=== PATIENT | male | born 1980 | race Caucasian/White ===

== ENCOUNTER → 2018-05-11 11:26 | Outpatient (CLI) | payer OTHER, SELFPAY ==
[2018-05-11 15:42] LABS: Absolute Lymphocyte Count 1.57 X10^3/ul (0.83-4.51); Absolute Neutrophil Count 3.4 X10^3/uL (2.0-7.7); Basophil# 0.02 X10^3/uL; Basophil% 0.4 % (0-1); Eosinophil# 0.04 X10^3/uL; Eosinophils% 0.7 % (0-5); Hematocrit 48.1 % (40-54); Hemoglobin 15.8 g/dl (13.0-16.5); Lymphocyte # 1.57 X10^3/ul (4.0); Lymphocyte % 28.9 % (19-41); Mean Corp Hgb Conc 32.8 g/gl (32-36); Mean Corpuscular Hgb 29.4 pg (27.0-32.0); Mean Corpuscular Volume 89.6 fL (80-94); Mean Platelet Vol. 10.3 fl (6.2-12.0); Monocyte# 0.39 X10^3/uL; Monocyte% 7.2 % (0-10); Neutrophil % 62.6 % (47-70); Platelet Count 221 K/mm3 (150-450); RBC Distribution Width CV 13.1 % (11.6-14.6); RBC Distribution Width SD 42.6 fl (35.1-43.9); Red Blood Count 5.37 M/mm3 (4.6-6.2); White Blood Count 5.4 K/mm3 (4.4-11.0)
[2018-05-11 15:45] LABS: POSITIVE COUNT NO; POSITIVE DIFFERENTIAL NO; POSITIVE MORPHOLOGY NO
[2018-05-11 18:54] LABS: ALB/GLOB Ratio 1.3 RATIO (0.9-2.4); AST(SGOT) 25 U/L (15-37); Alanine Aminotransfer ALT/SGPT 42 U/L (16-61); Albumin, Serum 4.3 g/dL (3.2-5.0); Alkaline Phosphatase 82 U/L (45-117); Anion Gap 9 (5-15); BUN 16 mg/dL (7-18); BUN/Creat Ratio 14.5 RATIO (10-20); Calcium,Total 9.4 mg/dL (8.5-10.1); Chloride 107 mmol/L (98-107); Cholesterol 204 mg/dL (200); EST Glomerular Filtration Rate 79 mL/min (>60); Est Glom Filt Rate - Afr Amer 96 mL/min (>60); Globulin 3.3 g/dL (2.2-4.2); Glucose 100 mg/dL (74-106); High Density Lipoprotein 65 mg/dL; Potassium 4.3 mmol/L (3.5-5.1); Protein, Total 7.6 g/dL (6.4-8.2); Sodium Level 143 mmol/L (136-145); Triglycerides 90 mg/dL; Very Low Density Lipoprotein 18 mg/dL (5-40)
== END ==
PROVIDERS: Family Provider Family Medicine; Visit Provider Family Medicine
DX: Z00.00 Encounter for general adult medical examination without abnormal findings (principal)
CPT/HCPCS: 36415; 80053; 80061; 85025

== ENCOUNTER 2022-05-20 22:27 | Emergency (ER) | payer OTHER, MEDICAID, SELFPAY ==
--- NOTE | 2022-05-20 22:30 | RAD_ITS ---
EXAM: XR RIGHT KNEE, 3 VIEWS CLINICAL INDICATION: R KNEE TRAUMA TECHNIQUE: Three views of the right knee. This report was created using [employer] report generation technology. COMPARISON: None. FINDINGS: BONES/JOINTS: Small bone islands involving the lateral femoral condyle. No acute or healing fracture or malalignment. Preservation of the joint space. SOFT TISSUES: Unremarkable. No soft tissue swelling or gas. No radiopaque foreign body. RAD/Knee 3 Views IMPRESSION: No acute or healing fracture or malalignment. Electronically Signed: Jose Carrero MD at 22:50 EDT ,
[2022-05-20 22:31] VITALS: BP 120/98; PULSE 86; RESP 16; TEMP 37.3; O2SAT 96; BMI 28.3
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
[2022-05-21] MEDS: Acetaminophen/Codeine #3 Tablet 2 TABLET PO (00:19)
== END 2022-05-21 00:20 | disposition home or self-care (01) ==
PROVIDERS: Emergency Provider Emergency Medicine; PCP Family Medicine; Visit Provider Emergency Medicine
DX: S70.11XA Contusion of right thigh, initial encounter (principal); W22.09XA Striking against other stationary object, initial encounter; Y93.89 Activity, other specified; M25.461 Effusion, right knee
CPT/HCPCS: 73562; 99283

== ENCOUNTER → 2024-11-01 | Outpatient (CLI) | payer OTHER, SELFPAY ==
[2024-11-01 10:11] LABS: Absolute Neutrophil Count 2.7 X10^3/uL (2.0-7.7); Basophil# 0.04 X10^3/uL; Basophil% 0.9 % (0-1); Eosinophil# 0.07 X10^3/uL; Eosinophils% 1.5 % (0-5); Hemoglobin 16.3 g/dL (13.0-16.5); Lymphocyte % 30.8 % (19-41); Mean Corp Hgb Conc 32.6 g/dL (32-36); Mean Corpuscular Volume 88.8 fL (80-94); Mean Platelet Vol. 9.7 fl (6.2-12.0); Monocyte# 0.34 X10^3/uL; Monocyte% 7.5 % (0-10); NRBC Flagged by Analyzer 0 % (0-5); Neutrophil # 2.68 X10^3/uL (2.7-7.7); Neutrophil % 58.9 % (47-70); Platelet Count 217 K/mm3 (150-450); RBC Distribution Width CV 12.4 % (11.6-14.6); RBC Distribution Width SD 40.9 fl (35.1-43.9); Red Blood Count 5.63 M/mm3 (4.6-6.2); White Blood Count 4.6 K/mm3 (4.4-11.0)
[2024-11-01 10:50] LABS: ALB/GLOB Ratio 1.2 RATIO (0.9-2.4); AST(SGOT) 29 U/L (15-37); Alanine Aminotransfer ALT/SGPT 43 U/L (16-61); Alkaline Phosphatase 72 U/L (45-117); Anion Gap 4 (5-15); BUN 23 mg/dL (7-18); BUN/Creat Ratio 20.5 RATIO (10-20); Calcium,Total 9.2 mg/dL (8.5-10.1); Chloride 108 mmol/L (98-107); Cholesterol 237 mg/dL (200); Creatinine, Serum 1.12 mg/dL (0.70-1.30); EST Glomerular Filtration Rate 75 mL/min (>60); Est Glom Filt Rate - Afr Amer 91 mL/min (>60); Globulin 3.2 g/dL (2.2-4.2); Glucose 94 mg/dL (74-106); High Density Lipoprotein 72 mg/dL; PSA,Total - Annual Screen 1.25 ng/mL (0.00-4.00); Potassium 4.4 mmol/L (3.5-5.1); Protein, Total 7.2 g/dL (6.4-8.2); Sodium Level 140 mmol/L (136-145); Triglycerides 118 mg/dL; Very Low Density Lipoprotein 24 mg/dL (5-40)
== END | disposition home or self-care (01) ==
PROVIDERS: PCP Family Medicine; Referring Provider Nurse Practitioner Family; Visit Provider Nurse Practitioner Family
DX: Z00.01 Encounter for general adult medical examination with abnormal findings (principal); Z12.5 Encounter for screening for malignant neoplasm of prostate; Z86.39 Personal history of other endocrine, nutritional and metabolic disease
CPT/HCPCS: 36415; 80053; 80061; 81291; 84153; 85025; G0103

== ENCOUNTER 2024-11-19 08:12 | Day surgery (SDC) | payer OTHER, SELFPAY ==
[2024-11-19] VITALS (7 sets, daily range): BP systolic 101–140; BP diastolic 75–94; PULSE 63–94; RESP 16–18; TEMP 36.2–36.8; O2SAT 96–99; BMI 30.5
--- NOTE | 2024-11-19 | COLBX_PTH ---
PATIENT: GILDARDO MARIE LOC: EN U#:[id number] AGE/SX: 44/M ROOM: RE11/19/[address]: Dr. Virgil Calvin MD : 1980 BED: DIS: 11/19/2024 SPEC #: [id number] RECD: 11/19/24 13:24 STATUS: HELEN JAMSHID #: [id number] SANJAY: 11/19/24 00:[address]: Virgil Calvin DEPT: SURGICAL PATHOLOGY RECD BY: Godfrey Talley ENTERED: 11/19/24 13:24 SP TYPE: COLON BX OTHR DR: Dr. Shadia Bonner MD Tissues: Sigmoid colon biopsy Procedures: Surgery Specimen Level IV HEADER OPERATION: Colonoscopy with biopsy PRE-OP DIAGNOSIS: Encounter for screening for malignant neoplasm of colon TISSUE SUBMITTED: Sigmoid polyp biopsy MICROSCOPIC DIAGNOSIS Sigmoid polyp, biopsy: Hyperplastic colonic polyp. PW.mr 11/20/2024 MICROSCOPIC DESCRIPTION Slides are reviewed. GROSS DESCRIPTION Received in fixative is one container labeled with the patient's name and designated Sigmoid polyp biopsy. The specimen consists of one irregular fragment of light self soft tissue that measures 0.3 x 0.2 x 0.1 cm. The specimen is totally submitted in one cassette. 11/19/2024 TC:5 CPT:51491
--- NOTE | 2024-11-19 08:57 | PRE.ANES_ITS ---
ASA Classification* ASA Classification ASA Classification: 2 Assessment & Plan Anesthesia* Anesthesia Assessment Anesthesia Assessment: Discussed sedation and/or anesthesia options, risks, benefits, and alternatives with patient/parents/legal guardian/POA. Questions invited. The patient/parents/legal guardian/POA seems to understand and agrees to proceed with anesthesia plan. Reviewed the physical assessment, medical history, allergy history and patient home medications list prior to surgery/procedure/anesthetic and documented any changes. Performed airway and anesthesia risk assessments. Anesthesia Type Anesthesia Type: MAC History Source History Obtained from:: Patient and Chart Anesthesia Focused Assessment* Temperature: 98.2 F Pulse Rate: 94 Blood Pressure: 140/94 Respiratory Rate: 18 Pulse Ox: 99 Oxygen Delivery Method: Room Air Airway Assessment Mouth opens: >3 cm Mallampati Score: I Teeth Condition: Intact Neck Range of motion (ROM): Limited ROM (Slight decrease in extension) Focused Labs Anesthesia Preop lab: CBC WBC 4.6 K/mm3 (4.4-11.0) 11/01/24 09:07 RBC 5.63 M/mm3 (4.6-6.2) 11/01/24 09:07 Hgb 16.3 g/dL (13.0-16.5) 11/01/24 09:07 Hct 50.0 % (40-54) 11/01/24 09:07 Plt Count 217 K/mm3 (150-450) 11/01/24 09:07 CHEMISTRY Potassium 4.4 mmol/L (3.5-5.1) 11/01/24 09:07 Sodium 140 mmol/L (136-145) 11/01/24 09:07 BUN 23 mg/dL (7-18) H 11/01/24 09:07 Creatinine 1.12 mg/dL (0.70-1.30) 11/01/24 09:07 Glucose 94 mg/dL (74-106) 11/01/24 09:07 COAG Pre-Assessment Diagnosis/Proposed Procedure Planned Operative Procedure(s): CSCOPE Anesthesia History 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 When Was Last Pacemaker Check QUESTION #4 FULL TEXT: You/Your Family Experience fever (hyperthermia) with Anesthesia Last Oral Intake Last Oral intake: Last Oral Intake NPO since 05:00 11/19/24 08:28 Meds taken in AM with sips of No 11/19/24 08:28 water? Meds patient instructed to take am of surgery Any additional information?: Yes NPO since: 05:00 (Patient finished prep at 5 AM.) PONV PONV - industrial relations analyst: PONV - industrial relations analyst Female No 11/14/24 15:49 HX of Motion Sickness No 11/14/24 15:49 HX of N/V After Surgery No 11/14/24 15:49 Non-Smoker Yes 11/14/24 15:49 Duration of Surgery greater No 11/14/24 15:49 than 60 minutes Number of Risk Factors 1 11/14/24 15:49 PONV Score Low Risk 11/14/24 15:49 Height & Weight Height & Weight: Anesthesia: Height & Weight Height 5 ft 7 in 11/19/24 08:28 Weight: 88.5 kg 11/19/24 08:28 Body Mass Index (BMI) 30.5 11/19/24 08:28 Respiratory Assessment Respiratory Assessment - industrial relations analyst: Respiratory Tract Infection Hx - industrial relations analyst Hx Respiratory Tract Infection No 11/14/24 15:49 STOP Sleep Apnea STOP Sleep Apnea - industrial relations analyst: STOP Sleep Apnea - industrial relations analyst Hx Hypertension No 11/14/24 15:49 Hx Sleep Apnea No 11/14/24 15:49 CPAP BIPAP Do you snore loudly (louder No 11/14/24 15:49 than talking or can be heard Do you often feel tired/ No 11/14/24 15:49 fatigued/ sleepy during daytime? Has anyone observed you stop No 11/14/24 15:49 breathing during sleep? STOP Results Negative 11/14/24 15:49 QUESTION #5 FULL TEXT : Do you snore loudly (louder than talking or can be heard through closed doors)? 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 Specify any problems Hx of Preganancy in last 3 N/A 11/14/24 15:49 Months Nurse Filling Out Transfusion NBUCHER 11/14/24 15:49 & Questions: Date: 11/14/24 11/14/24 15:49 Time: 15:50 11/14/24 15:49 Patient unable to answer at this time (ie. confused, unrespo /Reproduction History /Reproductive History - industrial relations analyst: /Reproductive Hx- industrial relations analyst Hx Now No 11/14/24 15:49 Gestational Age (in weeks): EDC: Hx Hx Para Hx Section SAB No 11/14/24 15:49 PFSH Medical History Cancer High cholesterol Non-smoker Seasonal allergies Hx of basal cell carcinoma Anxiety Home Medications ?Medication ?Instructions ?Recorded ?Last Taken ?Type fluoxetine 20 mg capsule 20 mg PO QDAY 09/30/24 Unknown History fluticasone propionate 50 2 spray intranasal QDAY PRN 09/30/24 Unknown History mcg/actuation nasal allergy symptoms spray,suspension (Flonase Allergy Relief) lactobacillus combination no.4 3 3,000 mmu cells PO QDAY 09/30/24 Unknown History billion cell capsule (Probiotic) montelukast 10 mg tablet 10 mg PO QDAY PRN allergy symptoms 09/30/24 Unknown History multivitamin 1 tab PO QDAY 09/30/24 Unknown History Allergy/AdvReac Type Severity Reaction Status Date / Time No Known Allergies Allergy Verified 11/19/24 08:20 Family History Mother Cervical cancer Father Autoimmune disorder Grandmother Breast cancer Surgical History History of wisdom tooth extraction History of basal cell carcinoma excision Hx of vasectomy Social History household members: spouse and children current occupational status: employed Smoking Status: Never smoker alcohol intake: current alcohol intake frequency: a few times a week substance use type: does not use Review of Systems (Anesthesia) ROS Narrative System reviewed and no additional complaints, except as documented.
--- NOTE | 2024-11-19 09:32 | HP.PCM_ITS ---
[facility] - General General Date of Admission: 11/19/24 Date of Service: 11/19/24 Chief Complaint: Screening colonoscopy HPI Narrative GILDARDO MARIE, is a 44 M who presents today for elective screening colonoscopy. This will be his first colonoscopy. He has not had any previous issues or problems. No blood in his stools. No black or tarry stools etc. No family history of colon polyps or colon cancers. [facility] Medical History Cancer High cholesterol Non-smoker Seasonal allergies Hx of basal cell carcinoma Anxiety Home Medications ?Medication ?Instructions ?Recorded ?Last Taken ?Type fluoxetine 20 mg capsule 20 mg PO QDAY 09/30/24 Unknown History fluticasone propionate 50 2 spray intranasal QDAY PRN 09/30/24 Unknown History mcg/actuation nasal allergy symptoms spray,suspension (Flonase Allergy Relief) lactobacillus combination no.4 3 3,000 mmu cells PO QDAY 09/30/24 Unknown History billion cell capsule (Probiotic) montelukast 10 mg tablet 10 mg PO QDAY PRN allergy symptoms 09/30/24 Unknown History multivitamin 1 tab PO QDAY 09/30/24 Unknown History Allergy/AdvReac Type Severity Reaction Status Date / Time No Known Allergies Allergy Verified 11/19/24 08:20 Family History Mother Cervical cancer Father Autoimmune disorder Grandmother Breast cancer Surgical History History of wisdom tooth extraction History of basal cell carcinoma excision Hx of vasectomy Social History household members: spouse and children current occupational status: employed Smoking Status: Never smoker alcohol intake: current alcohol intake frequency: a few times a week substance use type: does not use ROS Constitutional Constitutional: Reports systems reviewed and no addt'l complaints, except as documented Eyes Eyes: Reports systems reviewed and no addt'l complaints, except as documented ENT HEENT: Reports systems reviewed and no addt'l complaints, except as documented Cardiovascular Cardiovascular: Reports systems reviewed and no addt'l complaints, except as documented Respiratory/Chest Respiratory/Chest: Reports systems reviewed and no addt'l complaints, except as documented Gastrointestinal Gastrointestinal: Reports systems reviewed and no addt'l complaints, except as documented Vital Signs Vital Signs Vital Signs: 11/19/24 08:28 11/19/24 08:28 11/19/24 09:02 Temperature 98.2 F 98.2 F Temperature Source Temporal Pulse Rate 94 94 Respiratory Rate 18 18 Respiratory Pattern Normal Blood Pressure 140/94 H 140/94 H Blood Pressure Mean 109 Blood Pressure Source Monitor Blood Pressure Position Sitting Blood Pressure Location Right Arm Pulse Ox 99 99 Oxygen Delivery Method Room Air Room Air Weight Weight: 195 lb 1.745 oz Body Mass Index (BMI) 30.5 Physical Exam Const alert, oriented x3, no apparent distress and average body habitus Assessment & Plan Assessment/Plan (1) Encounter for screening for malignant neoplasm of colon: PLAN: The patient is a 44-year-old male in need of a screening colonoscopy. We discussed the details of the planned procedure including the risks benefits alternatives. He wishes to proceed. This will be taking place momentarily. Charges/Coding Visit Charges Inpatient E&M: 95790 Init Hosp L1
--- NOTE | 2024-11-19 10:10 | OP.COLON_ITS ---
Patient Name: Richard Little Procedure Date: 11/19/2024 9:29 AM Date of : 1980 Age: 44 Procedure: Colonoscopy Indications: Screening for colorectal malignant neoplasm Providers: Virgil Calvin MD Referring MD: Shadia Bonner Medicines: Monitored Anesthesia Care Patient Profile: Refer to note in patient chart for documentation of history and physical. Last Colonoscopy: none. The patient's first colonoscopy is today. Complications: No immediate complications. Estimated blood loss: None. Procedure: Pre-Anesthesia Assessment: - Prior to the procedure, a History and Physical was performed, and patient medications and allergies were reviewed. The patient's tolerance of previous anesthesia was also reviewed. The risks and benefits of the procedure and the sedation options and risks were discussed with the patient. All questions were answered, and informed consent was obtained. Prior Anticoagulants: The patient has taken no anticoagulant or antiplatelet agents. ASA Grade Assessment: II - A patient with mild systemic disease. After reviewing the risks and benefits, the patient was deemed in satisfactory condition to undergo the procedure. After I obtained informed consent, the scope was passed under direct vision. Throughout the procedure, the patient's blood pressure, pulse, and oxygen saturations were monitored continuously. The adult colonoscope was introduced through the anus and advanced to the cecum, identified by appendiceal orifice and ileocecal valve. The ileocecal valve, appendiceal orifice, and rectum were photographed. The entire colon was well visualized. The colonoscopy was performed without difficulty. The patient tolerated the procedure well. The quality of the bowel preparation was adequate. Moderate Sedation: See the other procedure note for documentation of moderate sedation with intraservice time. Scope In: 9:44:34 AM Scope Withdrawal Time 0 hours 15 minutes 31 seconds Scope Out: 10:05:48 AM Total Procedure Duration Time 0 hours 21 minutes 14 seconds Findings: The perianal and digital rectal examinations were normal. A 2 mm polyp was found in the sigmoid colon. The polyp was semi-pedunculated. The polyp was removed with a cold biopsy forceps. Resection and retrieval were complete. Verification of patient identification for the specimen was done by the nurse using the patient's name, date and medical record number. Estimated blood loss was minimal. The exam was otherwise without abnormality on direct and retroflexion views. Impression: - One 2 mm polyp in the sigmoid colon, removed with a cold biopsy forceps. Resected and retrieved. - The examination was otherwise normal on direct and retroflexion views. Recommendation: - Discharge patient to home (ambulatory). - High fiber diet. - Await pathology results. - Repeat colonoscopy in 5-10 years for surveillance based on pathology results. - Return to my office PRN. - Continue present medications. Procedure Code(s): --- Professional --- 54331, Colonoscopy, flexible; with biopsy, single or multiple Diagnosis Code(s): --- Professional --- Z12.11, Encounter for screening for malignant neoplasm of colon D12.5, Benign neoplasm of sigmoid colon CPT copyright 2021 [employer]. All rights reserved. The codes documented in this report are preliminary and upon activity aide review may be revised to meet current compliance requirements. Virgil Calvin MD 11/19/2024 10:10:03 AM This report has been signed electronically. Number of Addenda: 0 Note Initiated On: 11/19/2024 9:29 AM
--- NOTE | 2024-11-19 10:10 | OP.CCLET_ITS ---
11/19/2024 Shadia Bonner [address] [id number] [facility] [address] [address] Re : Colonoscopy procedure for Richard Little Dear Dr. Bonner This procedure was performed on Tuesday, November 19, 2024. My impressions and recommendations are as follows: Impressions : - One 2 mm polyp in the sigmoid colon, removed with a cold biopsy forceps. Resected and retrieved. - The examination was otherwise normal on direct and retroflexion views. Recommendations : - Discharge patient to home (ambulatory). - High fiber diet. - Await pathology results. - Repeat colonoscopy in 5-10 years for surveillance based on pathology results. - Return to my office PRN. - Continue present medications. My findings are described in the full procedure note, which is enclosed. If I can be of further assistance, please feel free to contact me at . Sincerely, Virgil Calvin MD 11/19/2024 10:10:03 AM This report has been signed electronically.
--- NOTE | 2024-11-19 10:15 | PCM.POST.ANE ---
Anesthesia: Postop Eval I Current Vital Signs Temperature: 97.3 F Pulse Rate: 65 Blood Pressure: 106/75 Respiratory Rate: 16 Pulse Ox: 96 Oxygen Delivery Method: Room Air Assessment Airway patent: Yes Spontaneous unlabored respirations: Yes Mental status: Awake and Calm nausea: No Vomiting: No Anesthesia Complication: No Fluid Hydration Crystalloid volume administer (ml): 40 Total IV fluid infused: 40 Progress Note Anesthesia document: Postop Eval 1 completed: Yes
--- NOTE | 2024-11-19 20:14 | PCM.POSTANE2 ---
Anesthesia Postop Eval I Sum Postop Eval Completion status Anesthesia document: Postop Eval 1 completed: Yes Anesthesia Postop Eval I Summary Anesthesia Postop Eval I Summary: Anesthesia Postop Eval I: Assessment Summary Airway patent Yes 11/19/24 10:16 [email or web address] Spontaneous unlabored Yes 11/19/24 10:16 [email or web address] respirations Mental status Awake,Calm 11/19/24 10:16 [email or web address] nausea No 11/19/24 10:16 [email or web address] Vomiting No 11/19/24 10:16 [email or web address] Anesthesia Postop Eval I: Fluid Summary Crystalloid volume administer 40 11/19/24 10:16 [email or web address] (ml) Colloids volume administered ( ml) Blood Product volume administered (ml) Total IV fluid infused 40 11/19/24 10:16 [email or web address] Anesthesia Postop Eval I: Summary Notes Anesthesia Complication No 11/19/24 10:16 [email or web address] Anesthesia Complication Comment: Post-operative progress note Anesthesia: Postop Eval II Evaluation Mental status: Awake and Calm Pain Level: 0 nausea: No Vomiting: No Complications Anesthesia Complication: No
== END 2024-11-19 10:38 | disposition home or self-care (01) ==
LOC: EN 08:13 → AC 08:14
PROVIDERS: PCP Family Medicine; Referring Provider Family Medicine; Visit Provider Surgery
PROC: 0DJD8ZZ Inspection of Lower Intestinal Tract, Via Natural or Artificial Opening Endoscopic (ICD-10-PCS; CPT 45378; principal; 2024-11-19 09:10)
DX: Z12.11 Encounter for screening for malignant neoplasm of colon (principal); D12.5 Benign neoplasm of sigmoid colon
CPT/HCPCS: 45380; 88305; A4216; J2405